=== PATIENT | female | born 1960 | race Two or more races ===

== ENCOUNTER 2020-05-22 07:33 | Outpatient (REF) | payer OTHER, SELFPAY | END 2020-05-22 07:34 | disposition home or self-care (01) | LOC: HO.LAB 07:33 | PROVIDERS: Visit Provider Internal Medicine | DX: Z20.828 Contact with and (suspected) exposure to other viral communicable diseases (principal) | CPT/HCPCS: U0003 ==

== ENCOUNTER 2020-08-17 11:42 | Outpatient (REF) | payer OTHER, SELFPAY ==
--- NOTE | 2020-08-17 11:48 | XR_ITS ---
EXAMINATION: XR KNEE, RIGHT XR KNEE, LEFT CLINICAL INFORMATION: Bilateral knee pain COMPARISON: None. TECHNIQUE: Each knee is imaged in 4 views. There are a total of 8 views. FINDINGS: Right: There is trace suprapatellar effusion with mild thickening of the bursa. Hoffa's fat pad appears normal. There is no joint narrowing or erosive change or chondrocalcinosis. No fracture or dislocation or destructive process. Left: No fracture, dislocation, or suprapatellar effusion. Hoffa's fat pad appears normal. There is no joint narrowing, erosive change, or chondrocalcinosis. Normal bony mineralization. No destructive process. XR/XR knee RT 4V IMPRESSION: 1. Right. Trace suprapatellar effusion. No bony abnormality. 2. Left: Unremarkable.
--- NOTE | 2020-08-17 11:48 | XR_ITS ---
EXAMINATION: XR KNEE, RIGHT XR KNEE, LEFT CLINICAL INFORMATION: Bilateral knee pain COMPARISON: None. TECHNIQUE: Each knee is imaged in 4 views. There are a total of 8 views. FINDINGS: Right: There is trace suprapatellar effusion with mild thickening of the bursa. Hoffa's fat pad appears normal. There is no joint narrowing or erosive change or chondrocalcinosis. No fracture or dislocation or destructive process. Left: No fracture, dislocation, or suprapatellar effusion. Hoffa's fat pad appears normal. There is no joint narrowing, erosive change, or chondrocalcinosis. Normal bony mineralization. No destructive process. XR/XR knee LT 4V IMPRESSION: 1. Right. Trace suprapatellar effusion. No bony abnormality. 2. Left: Unremarkable.
== END 2020-08-17 11:43 | disposition home or self-care (01) ==
LOC: HO.XRAY 11:42
PROVIDERS: Visit Provider Nurse Practitioner Family
DX: M25.562 Pain in left knee (principal); M25.561 Pain in right knee; Z91.81 History of falling
CPT/HCPCS: 73564

== ENCOUNTER 2021-01-05 12:56 | Emergency (ER) | payer OTHER, SELFPAY ==
[2021-01-05 13:12] VITALS: BP 140/93; PULSE 81; RESP 16; O2SAT 98; BMI 29.2
[2021-01-05 15:53] LABS: MANUAL DIFF FLAG NO
[2021-01-05 15:54] LABS: Basophils Absolute Auto 0.1 X10*3/uL (0.0-0.2); Basophils Percent Auto 0.8 % (0-2); Eosinophils Absolute Auto 0.2 X10*3/uL (0.0-0.4); Eosinophils Percent Auto 2.1 % (0-4); Hematocrit 41.1 % (37-47); Imm Gran Abs Auto 0.03 X10*3/uL (0.00-0.03); Imm Gran Pct Auto 0.4 % (0.0-0.4); Lymphocytes Absolute Auto 2.9 X10*3/uL (1.2-4.9); Lymphocytes Percent Auto 34.7 % (20-40); Mean Corpuscular HGB Conc 31.6 g/dl (31.0-35.0); Mean Corpuscular Hemoglobin 27.5 pg (27.0-33.0); Mean Corpuscular Volume 87.1 fL (80-98); Mean Platelet Volume 11.8 fL (9.4-12.3); Monocytes Absolute Auto 0.4 X10*3/uL (0.1-1.2); Monocytes Percent Auto 4.3 % (2-11); Neutrophils Absolute Auto 4.9 X10*3/uL (2.0-8.3); Neutrophils Percent Auto 57.7 % (45-73); Platelet Count 267 X10*3/uL (160-400); Red Blood Count 4.72 X10*6/uL (4.20-5.50); Red Cell Distribution Width 15.1 % (11.0-16.0); White Blood Count 8.5 X10*3/uL (4.8-10.8)
[2021-01-05 16:23] LABS: Alanine Aminotransferase 24 U/L (0-31); Albumin Level 4.5 g/dL (3.5-5.0); Alkaline Phosphatase 120 U/L (39-117); Anion Gap 13 (12-20); Aspartate Amino Transferase 19 U/L (5-31); Bilirubin Total 0.5 mg/dL (0.0-1.0); Blood Urea Nitrogen 11 mg/dL (9-16); Calcium 10.2 mg/dL (8.4-10.2); Carbon Dioxide 28 mmol/L (22-29); Chloride 105 mmol/L (96-108); Creatinine Clr Calc Pharmacy 69.6; Estimated Glomerular Filt Rate > 60; Glucose Random 78 mg/dL (60-115); Potassium 4.5 mmol/L (3.3-5.1); Sodium 141 mmol/L (135-145); Total Protein 8.1 g/dL (6.5-8.0)
== END 2021-01-05 16:09 | disposition left against medical advice (07) ==
PROVIDERS: Emergency Provider Emergency Medicine
DX: M54.9 Dorsalgia, unspecified (principal)
CPT/HCPCS: 36415; 80053; 85025; 99282; 99283

== ENCOUNTER 2021-01-07 06:25 | Emergency (ER) | payer OTHER, SELFPAY ==
--- NOTE | 2021-01-07 | ECG_ITS ---
Test Reason : CHEST PAIN Blood Pressure : / mmHG Vent. Rate : 073 BPM Atrial Rate : 073 BPM P-R Int : 158 ms QRS Dur : 068 ms QT Int : 402 ms P-R-T Axes : 007 -04 025 degrees QTc Int : 442 ms Normal sinus rhythm Minimal voltage criteria for LVH, may be normal variant Borderline ECG No previous ECGs available Referred By: Generic ED Physician Electronically Signed By:JEANCARLOS CANO
--- NOTE | ~2021-01-07 | XR_ITS ---
EXAMINATION: PORTABLE CHEST 1 VIEW CLINICAL INFORMATION: chest pain . COMPARISON: No recent pertinent prior studies are available for comparison. TECHNIQUE: Portable frontal view of the chest was obtained. FINDINGS: The lungs are well expanded. No focal infiltrate, effusion, edema, or pneumothorax. Cardiac and mediastinal silhouettes are within normal limits for technique. No acute bony abnormality seen. Degenerative changes in the shoulders and spine. XR/XR chest 1V IMPRESSION: No evidence of acute disease.
[2021-01-07 06:50] VITALS: BP 144/92; PULSE 70; RESP 18; TEMP 36.6; O2SAT 99; BMI 27.3
--- NOTE | 2021-01-07 06:55 | ED.CHESTPAIN ---
HPI - Chest Pain General Chief Complaint: Chest Pain Stated Complaint: chest pains Time Seen by Provider: 01/07/21 06:40 Source: patient Mode of arrival: ambulatory Limitations: no limitations History of Present Illness MD complaint: chest pain and chest heaviness Pertinent past history: asthma Onset (ago): day(s) (2) Timing of current episode: constant Prior episodes: No Onset: during rest and during exertion Pain location: substernal Pain radiation: back Severity: moderate Quality: tightness, aching and heaviness Relieving factors: nothing Exacerbating factors: nothing Associated symptoms: dyspnea Treatment prior to arrival: none Related Data Previous Rx's Medication Instructions Recorded cyclobenzaprine 10 mg PO TID PRN #14 tab 01/07/21 doxycycline hyclate 100 mg PO BID 7 Days #14 cap 01/07/21 famotidine [Pepcid] 20 mg PO DAILY PRN #30 tab 01/07/21 ondansetron 4 mg PO Q8H PRN #20 tab 01/07/21 Allergies Allergy/AdvReac Type Severity Reaction Status Date / Time No Known Allergies Allergy Verified 01/07/21 09:44 Review of Systems Review of Systems: Constitutional : No Weight loss, No Fever, No Chills ENT/Mouth : No sore throat, No Rhinorrhea Eyes: No Eye Pain, No Swelling Cardiovascular : pos Chest Pain, pos SOB, no Dyspnea on Exertion, No Orthopnea, No Edema, No Palpitations Respiratory : No Cough, No Sputum Gastrointestinal : no Nausea, No Vomiting, No Diarrhea, No abdominal Pain, No Hematochezia, No Melena Genitourinary : No Dysuria, No Urinary Frequency Musculoskeletal : No joint pain, No Myalgias, No Joint Swelling Skin : No Skin Lesions, No rash Neuro : No Weakness, No Numbness, No Dizziness, No Headache Psych : No Anxiety/Panic, No Depression Heme/Lymph: No Bruising, No Lymphadenopathy Endocrine : No Polyuria, No Polydipsia All other systems reviewed and are negative [facility] Past Medical History Medical History (Updated 01/07/21 @ 09:49 by Idalia Mcallister DO) Asthma No known health problems Social History Social History (Updated 01/07/21 @ 07:40 by Idalia Mcallister DO) Patient Tobacco Use Status: Current someday Tobacco user Use of substances other than those prescribed or required for medical reasons: No Advance Directives: No Advance Directives Information Provided: No Patient : No Physical Exam Vital Signs: Vital Signs: Last Vital Signs Temp 97.8 F 01/07/21 06:50 Pulse 76 01/07/21 08:18 Resp 18 01/07/21 06:50 BP 144/92 H 01/07/21 06:50 Pulse Ox 99 01/07/21 06:50 Body Mass Index 27.3 Appearance: Alert. Oriented X3. No acute distress. Eyes: Pupils equal, round and reactive to light. ENT: Pharynx normal. Neck: Normal inspection. Neck supple. CVS: Normal heart rate and rhythm. Pulses normal. Respiratory: No respiratory distress. Breath sounds decreased throughout Abdomen: Soft and nontender. Skin: Skin warm and dry. Normal skin color. Normal skin turgor. Extremities: No lower extremity edema. No calf ttp Neuro: Oriented X 3. No motor deficit. No sensory deficit. Course Course Course Narrative: neg ddimer, EKG, CXR, troponin flat with 2 days of symptoms + trich will treat for G+C as well having unprotected sex with her ex patient aware of plan of care, feels better MDM - Chest Pain MDM Narrative Medical decision making narrative: 60 yo female with a hx of asthma here with chest tightness and pain with dyspnea at this time she is diminished will need labs, troponin x 1, ddimer, CXR, EKG, she is diminished albuterol and prednisone ordered, could be MSK vs atypical ACS vs VTE it has been going on for 2 days - dispo per results and findings. Lab Data Result diagrams: 01/07/21 08:45 01/07/21 08:45 Labs: Lab Results 01/07/21 01/07/21 01/07/21 Range/Units 08:45 08:45 08:46 WBC 6.2 (4.8-10.8) X10*3/uL RBC 4.61 (4.20-5.50) X10*6/uL Hgb 12.5 (12.0-16.0) g/dl Hct 40.0 (37-47) % MCV 86.8 (80-98) fL MCH 27.1 (27.0-33.0) pg MCHC 31.3 (31.0-35.0) g/dl RDW 15.4 (11.0-16.0) % Plt Count 241 (160-400) X10*3/uL MPV 11.8 (9.4-12.3) fL Immature Gran % (Auto) 0.2 (0.0-0.4) % Neut % (Auto) 56.3 (45-73) % Lymph % (Auto) 34.4 (20-40) % Murray % (Auto) 4.9 (2-11) % Eos % (Auto) 3.1 (0-4) % Baso % (Auto) 1.1 (0-2) % Lymph # (Auto) 2.1 (1.2-4.9) X10*3/uL Murray # (Auto) 0.3 (0.1-1.2) X10*3/uL Eos # (Auto) 0.2 (0.0-0.4) X10*3/uL Baso # (Auto) 0.1 (0.0-0.2) X10*3/uL Abs Immat Gran (auto) 0.01 (0.00-0.03) X10*3/uL Absolute Neuts (auto) 3.5 (2.0-8.3) X10*3/uL Absolute Nucleated RBC 0.000 (0.0-0.012) X10*3/uL Nucleated RBC % (auto) 0.0 (0.0-0.2) /100WBC D-Dimer NG/ML Sodium 142 (135-145) mmol/L Potassium 4.2 (3.3-5.1) mmol/L Chloride 105 (96-108) mmol/L Carbon Dioxide 29 (22-29) mmol/L Anion Gap 12 (12-20) BUN 17 H D (9-16) mg/dL Creatinine 0.77 (0.5-1.4) mg/dL Estim Creat Clear Calc 67.4 Estimated GFR > 60 Random Glucose 98 (60-115) mg/dL Calcium 9.4 D (8.4-10.2) mg/dL Magnesium 2.1 (1.6-2.6) mg/dL Total Bilirubin 0.3 (0.0-1.0) mg/dL Direct Bilirubin < 0.2 (0.0-0.5) mg/dL AST 17 (5-31) U/L ALT 22 (0-31) U/L Alkaline Phosphatase 108 (39-117) U/L Troponin I High Sens < 3.5 (<3.5-17.0) ng/L B-Natriuretic Peptide 19 (<100) pg/mL Total Protein 7.2 (6.5-8.0) g/dL Albumin 4.1 (3.5-5.0) g/dL Lipase 24 (8-78) U/L // Range/Units 08:46 WBC (4.8-10.8) X10*3/uL RBC (4.20-5.50) X10*6/uL Hgb (12.0-16.0) g/dl Hct (37-47) % MCV (80-98) fL MCH (27.0-33.0) pg MCHC (31.0-35.0) g/dl RDW (11.0-16.0) % Plt Count (160-400) X10*3/uL MPV (9.4-12.3) fL Immature Gran % (Auto) (0.0-0.4) % Neut % (Auto) (45-73) % Lymph % (Auto) (20-40) % Murray % (Auto) (2-11) % Eos % (Auto) (0-4) % Baso % (Auto) (0-2) % Lymph # (Auto) (1.2-4.9) X10*3/uL Murray # (Auto) (0.1-1.2) X10*3/uL Eos # (Auto) (0.0-0.4) X10*3/uL Baso # (Auto) (0.0-0.2) X10*3/uL Abs Immat Gran (auto) (0.00-0.03) X10*3/uL Absolute Neuts (auto) (2.0-8.3) X10*3/uL Absolute Nucleated RBC (0.0-0.012) X10*3/uL Nucleated RBC % (auto) (0.0-0.2) /100WBC D-Dimer 229 NG/ML Sodium (135-145) mmol/L Potassium (3.3-5.1) mmol/L Chloride (96-108) mmol/L Carbon Dioxide (22-29) mmol/L Anion Gap (12-20) BUN (9-16) mg/dL Creatinine (0.5-1.4) mg/dL Estim Creat Clear Calc Estimated GFR Random Glucose (60-115) mg/dL Calcium (8.4-10.2) mg/dL Magnesium (1.6-2.6) mg/dL Total Bilirubin (0.0-1.0) mg/dL Direct Bilirubin (0.0-0.5) mg/dL AST (5-31) U/L ALT (0-31) U/L Alkaline Phosphatase (39-117) U/L Troponin I High Sens (<3.5-17.0) ng/L B-Natriuretic Peptide (<100) pg/mL Total Protein (6.5-8.0) g/dL Albumin (3.5-5.0) g/dL Lipase (8-78) U/L ECG Data ECG #1: Attestation: I personally reviewed and interpreted this ECG as follows: ECG interpretation date: 01/07/21 ECG interpretation time: 06:56 Interpretation: Rate: 73 Rhythm: NSR Maidens: left, LVH Normal P waves. Normal DANITA. Normal QRS complex. ST T wave : normal no KEMAL qTC: normal prior studies: no acute ischemia The study has been interpreted contemporaneously by me. . Discharge Plan Discharge Clinical Impression: Atypical chest pain, Trichomonas infection GERD (gastroesophageal reflux disease) Qualifiers: Esophagitis presence: with esophagitis Esophagitis bleeding: without hemorrhage Qualified Code(s): K21.00 - Gastro-esophageal reflux disease with esophagitis, without bleeding Patient Disposition: Home, Self-Care Instructions: Chest Pain (ED), Trichomoniasis (ED), Gastroesophageal Reflux Disease (ED) Additional Instructions: return to ED for any worsening symptoms or concerns Prescriptions: New cyclobenzaprine 10 mg tablet 10 mg PO TID PRN (Reason: muscle spasm) Qty: 14 RF: 0 doxycycline hyclate 100 mg capsule 100 mg PO BID 7 Days Qty: 14 RF: 0 famotidine [Pepcid] 20 mg tablet 20 mg PO DAILY PRN (Reason: abdominal discomfort) Qty: 30 RF: 0 ondansetron 4 mg tablet,disintegrating 4 mg PO Q8H PRN (Reason: nausea and vomiting) Qty: 20 RF: 0
[2021-01-07] MEDS: Cyclobenzaprine HCl 10 MG TABLET PO (07:48)
[2021-01-07] MEDS: predniSONE 20 MG TABLET 60 MG PO (07:48)
[2021-01-07] MEDS: Aspirin 81 MG TAB.CHEW 162 MG PO (07:49)
[2021-01-07] MEDS: Albuterol Sulfate (0.083%) 2.5 MG/3 ML VIAL.NEB INHALE (08:15)
[2021-01-07 08:18] VITALS: PULSE 76; O2SAT 96
[2021-01-07 08:56] LABS: MANUAL DIFF FLAG NO
[2021-01-07 08:57] LABS: Basophils Absolute Auto 0.1 X10*3/uL (0.0-0.2); Basophils Percent Auto 1.1 % (0-2); Eosinophils Absolute Auto 0.2 X10*3/uL (0.0-0.4); Eosinophils Percent Auto 3.1 % (0-4); Hemoglobin 12.5 g/dl (12.0-16.0); Imm Gran Abs Auto 0.01 X10*3/uL (0.00-0.03); Imm Gran Pct Auto 0.2 % (0.0-0.4); Lymphocytes Absolute Auto 2.1 X10*3/uL (1.2-4.9); Lymphocytes Percent Auto 34.4 % (20-40); Mean Corpuscular HGB Conc 31.3 g/dl (31.0-35.0); Mean Corpuscular Hemoglobin 27.1 pg (27.0-33.0); Mean Corpuscular Volume 86.8 fL (80-98); Mean Platelet Volume 11.8 fL (9.4-12.3); Monocytes Absolute Auto 0.3 X10*3/uL (0.1-1.2); Monocytes Percent Auto 4.9 % (2-11); Neutrophils Absolute Auto 3.5 X10*3/uL (2.0-8.3); Neutrophils Percent Auto 56.3 % (45-73); Platelet Count 241 X10*3/uL (160-400); Red Blood Count 4.61 X10*6/uL (4.20-5.50); Red Cell Distribution Width 15.4 % (11.0-16.0); White Blood Count 6.2 X10*3/uL (4.8-10.8)
[2021-01-07 09:06] LABS: D Dimer 229 NG/ML
[2021-01-07 09:30] LABS: Alanine Aminotransferase 22 U/L (0-31); Albumin Level 4.1 g/dL (3.5-5.0); Alkaline Phosphatase 108 U/L (39-117); Anion Gap 12 (12-20); Aspartate Amino Transferase 17 U/L (5-31); Bilirubin Direct < 0.2 mg/dL (0.0-0.5); Bilirubin Total 0.3 mg/dL (0.0-1.0); Blood Urea Nitrogen 17 mg/dL (9-16); Calcium 9.4 mg/dL (8.4-10.2); Carbon Dioxide 29 mmol/L (22-29); Chloride 105 mmol/L (96-108); Creatinine Clr Calc Pharmacy 67.4; Estimated Glomerular Filt Rate > 60; Glucose Random 98 mg/dL (60-115); Lipase 24 U/L (8-78); Magnesium 2.1 mg/dL (1.6-2.6); Potassium 4.2 mmol/L (3.3-5.1); Sodium 142 mmol/L (135-145); Total Protein 7.2 g/dL (6.5-8.0)
[2021-01-07] MEDS: Lidocaine HCl Viscous 2 % 15 ML SOLUTION MUCOUS MEM (09:30)
[2021-01-07] MEDS: Magnesium Hydrox/Alum Hydrox 30 ML ORAL.SUSP PO (09:30)
[2021-01-07 09:37] LABS: B Type Natriuretic Peptide 19 pg/mL (<100); Troponin-I High Sensitivity < 3.5 ng/L (<3.5-17.0)
[2021-01-07] MEDS: metroNIDAZOLE 500 MG TABLET 2000 MG PO (10:04)
[2021-01-07] MEDS: cefTRIAXone sodium 500 MG, Lidocaine HCl 1 % MPF 1 ML IM (10:05)
[2021-01-07 11:22] LABS: BV Int Neg Control Negative (Negative); BV Int Pos Control Positive (Positive)
[2021-01-07 12:02] LABS: CT PCR NOT DETECTED (Not Detect.); NG PCR NOT DETECTED (Not Detect.)
== END 2021-01-07 10:14 | disposition home or self-care (01) ==
PROVIDERS: Emergency Provider Emergency Medicine
DX: R07.89 Other chest pain (principal); A59.9 Trichomoniasis, unspecified; K21.00 Gastro-esophageal reflux disease with esophagitis, without bleeding; J45.909 Unspecified asthma, uncomplicated
CPT/HCPCS: 36415; 71045; 80048; 80076; 83690; 83735; 83880; 84484; 85025; 85379; 87480; 87491; 87510; 87591; 87660; 93005; 94640; 96372; 99284; 99285; J0696

== ENCOUNTER 2021-04-04 07:54 | Emergency (ER) | payer OTHER, SELFPAY ==
--- NOTE | ~2021-04-04 | XR_ITS ---
EXAMINATION: LUMBAR SPINE AND RIGHT HIP. CLINICAL INFORMATION: Low back pain radiating down the right leg. COMPARISON: None TECHNIQUE: Lumbar spine 4 views. AP pelvis and right hip 3 views. FINDINGS: Lumbar spine: There is normal lumbar lordosis. The vertebral heights, alignment and disc heights are normal. No visible acute fracture, dislocation or subluxation seen. Mild loss of L5-S1, L4-L5 and L3-L4 disc heights is seen. Mild right lateral spondylosis at the L4-L5 and L5-S1 disc levels is noted. No visible fracture, dislocation or lytic process seen. The paravertebral soft tissues are normal. AP pelvis: There is normal is symmetrical hip joint and SI joint spaces without any bony erosive changes, fracture or dislocation. No lytic process seen. The soft tissues are normal. There are enthesophytes along the right anterior superior iliac spine. The soft tissues are normal. Right hip: There is no acute fracture or dislocation. There is mild medial right hip joint periarticular spurring. There are small enthesophytes along the right greater trochanter as well. No visible acute fracture, dislocation or subluxation seen. XR/XR lumbar spine 2-3V IMPRESSION: Mild degenerative disc changes lumbar spine from L3-L4 L5-S1 disc levels. There is moderate right enthesophytes along the L4-L5 and L5/S1 disc level. This may be impinging on the neural foramina. No visible acute fracture or dislocation seen. Degenerative right hip changes with periarticular spurring. No acute fracture, dislocation or lytic process seen.
--- NOTE | ~2021-04-04 | XR_ITS ---
EXAMINATION: LUMBAR SPINE AND RIGHT HIP. CLINICAL INFORMATION: Low back pain radiating down the right leg. COMPARISON: None TECHNIQUE: Lumbar spine 4 views. AP pelvis and right hip 3 views. FINDINGS: Lumbar spine: There is normal lumbar lordosis. The vertebral heights, alignment and disc heights are normal. No visible acute fracture, dislocation or subluxation seen. Mild loss of L5-S1, L4-L5 and L3-L4 disc heights is seen. Mild right lateral spondylosis at the L4-L5 and L5-S1 disc levels is noted. No visible fracture, dislocation or lytic process seen. The paravertebral soft tissues are normal. AP pelvis: There is normal is symmetrical hip joint and SI joint spaces without any bony erosive changes, fracture or dislocation. No lytic process seen. The soft tissues are normal. There are enthesophytes along the right anterior superior iliac spine. The soft tissues are normal. Right hip: There is no acute fracture or dislocation. There is mild medial right hip joint periarticular spurring. There are small enthesophytes along the right greater trochanter as well. No visible acute fracture, dislocation or subluxation seen. XR/XR hip RT min 2V IMPRESSION: Mild degenerative disc changes lumbar spine from L3-L4 L5-S1 disc levels. There is moderate right enthesophytes along the L4-L5 and L5/S1 disc level. This may be impinging on the neural foramina. No visible acute fracture or dislocation seen. Degenerative right hip changes with periarticular spurring. No acute fracture, dislocation or lytic process seen.
--- NOTE | ~2021-04-04 | US_ITS ---
EXAMINATION: US VENOUS ULTRASOUND WITH DOPPLER LOWER EXTREMITY, RIGHT CLINICAL INFORMATION: Right palpable finding COMPARISON: None TECHNIQUE: Ultrasound of the deep veins is performed from the hip to the calf with compression sonography and color and pulse Doppler assessment. Spectral analysis with color-flow imaging is performed. FINDINGS: There is normal venous compression and respiratory variation and augmented flow. The visualized common femoral vein, superficial femoral vein, profunda femoral vein, popliteal vein, and the trifurcation region shows no evidence of deep venous thrombosis. There is no significant popliteal fossa cyst. There are 2 superficial hyperechoic areas in the subcutaneous fat of the lateral upper thigh questionable for focal lipomas. These measure 1.8 x 0.7 x 1.4 cm and 1.5 x 0.7 x 1.5 cm. There is shotty right inguinal lymphadenopathy. US/US venous duplex LE RT IMPRESSION: No DVT demonstrated in the right lower extremity.
[2021-04-04 08:12] VITALS: BP 135/66; PULSE 65
[2021-04-04 08:25] VITALS: BP 161/93; PULSE 66; RESP 16; O2SAT 98; BMI 27.3
--- NOTE | 2021-04-04 08:52 | ED.BACK ---
HPI - Back Pain/Injury General Chief Complaint: Back Pain/Injury Stated Complaint: R UPPER LEG TO BACK PAIN X'S 1 WEEK Time Seen by Provider: 04/04/21 08:33 Source: patient Mode of arrival: ambulatory Limitations: no limitations History of Present Illness HPI Narrative: Patient presents to ED for multiple complaints. Patient states right leg pain/numbness with pain being referred to right lower back/hip area for 1 weeks. Patient was concerned because shows palpable mass on lateral side of thigh and history of Varicose veins with concerning for DVT. Patient denies any facial droop, slurred speech, paralysis of extremities, trouble walking, or urinary/bowel incontinence. Related Data Previous Rx's Medication Instructions Recorded cyclobenzaprine 10 mg tablet 10 mg PO TID PRN #14 tab 01/07/21 doxycycline hyclate 100 mg capsule 100 mg PO BID 7 Days #14 cap 01/07/21 famotidine 20 mg tablet (Pepcid) 20 mg PO DAILY PRN #30 tab 01/07/21 ondansetron 4 mg disintegrating 4 mg PO Q8H PRN #20 tab 01/07/21 tablet ketorolac 10 mg tablet 10 mg PO Q6H PRN 5 Days #20 tab 04/04/21 prednisone 20 mg tablet 40 mg PO DAILY 5 Days #10 tab 04/04/21 Allergies Allergy/AdvReac Type Severity Reaction Status Date / Time No Known Allergies Allergy Verified 01/07/21 09:44 Review of Systems Review of Systems: Yes all other systems are reviewed and are negative Constitutional: Constitutional: Reports as per HPI and Reports no additional constitutional complaints Eyes: Eyes: Reports as per HPI and Reports no additional eye complaints ENT: Reports system reviewed and no additional complaints, except as documented and Reports as per HPI Cardiovascular: Cardiovascular: Reports as per HPI and Reports no additional cardiovascular complaints Respiratory: Respiratory: Reports as per HPI and Reports no additional respiratory complaints Gastrointestinal: Gastrointestinal: Reports as per HPI and Reports no additional gastrointestinal complaints Musculoskeletal: Musculoskeletal: Reports no additional musculoskeletal complaints, Reports as per HPI and Reports back pain (lower back) Comments: right thigh pain radiating down leg/numbness Neurologic: Reports system reviewed and no additional complaints, except as documented and Reports as per HPI Psychiatric: Psychiatric: Reports no additional psychiatric complaints and Reports as per HPI [facility] Past Medical History Medical History (Updated 04/04/21 @ 11:36 by ROSALIA Aviles) Asthma No known health problems Social History Social History (Updated 01/07/21 @ 07:40 by Idalia Mcallister DO) Patient Tobacco Use Status: Current someday Tobacco user Advance Directives: No Advance Directives Information Provided: No Physical Exam Vital Signs: Vital Signs: Last Vital Signs Pulse 66 04/04/21 08:25 Resp 16 04/04/21 08:25 BP 161/93 H 04/04/21 08:25 Pulse Ox 98 04/04/21 08:25 Body Mass Index 27.3 Const: General: cooperative, healthy appearing, comfortable, no acute distress, well developed, alert, awake and Physically active Orientation/consciousness: patient oriented x3 HENMT: Head: Yes normal to inspection, Yes No palpable skull fracture present, Yes normocephalic, Yes atraumatic and No abrasion Eyes: General: appearance normal, both eyes and all related structures Neck: Neck: Yes normal visual inspection, Yes full ROM, Yes no lymphadenopathy, Yes no meningeal signs, Yes trachea midline, Yes supple and No tender Chest: Chest palpation & inspection: normal inspection of the chest and normal palpation of entire chest wall Resp: Effort & Inspection: normal respiratory effort and able to speak in complete sentences Auscultation: clear to auscultation bilaterally Cardio: Jugular venous distension: no JVD Heart sounds: S1 normal heart sound present and S2 normal heart sound present GI: Inspection: Yes normal to inspection and No abdominal wall ecchymosis Palpation (GI): Soft to palpation, not firm, nontender and no guarding : General: No CVA tenderness and Yes no CVA tenderness Back/Spine/Pelvis: Back: no CVA tenderness, No CVA tenderness and back tenderness (Positive for right lumbar tenderness on palpation) Skin: General skin exam: no rashes or lesions noted and elasticity normal Neuro: General: patient oriented x3, gait normal and no meningeal signs Cranial nerves: Yes CN's II-XII intact bilaterally Extrem: General: Yes normal to inspection and Yes full ROM Upper/lower leg/hip images: 1. Tender non erythematous mass on palpation. Popliteal/femoral/pedal pulses intact. Motor/neuro/vascular exam intact Psych: Appearance: grossly normal, well kempt and not disheveled Course Course Course Narrative: History and physical exam indicates more referred lumbar radiculopathy, due to possible mass on right thigh with history of varicose veins with ultrasound. Rule out DVT. Reevaluation(s) Reevaluation #1: X-ray of spine and hip shows degenerative arthritis. UA negative for UTI. Ultrasound shows lipomas. Time: 11:32 MDM - Back Pain/Injury MDM Narrative Medical decision making narrative: Degenerative arthritis. Lumbar radicular Passy. Lipoma Lab Data Labs: Lab Results 04/04/21 Range/Units 09:48 Urine Color YELLOW Urine Appearance CLEAR Urine pH 6.0 (5.0-8.0) Ur Specific [place] 1.015 (1.005-1.025) Urine Protein NEG (NEG-TRACE) MG/DL Urine Glucose (UA) NEG (NEG) MG/DL Urine Ketones NEG (NEG) MG/DL Urine Blood NEG (NEG) Urine Nitrite NEG (NEG) Ur Leukocyte Esterase NEG (NEG) Discharge Plan Discharge Clinical Impression: Lumbar radiculopathy, Degenerative disc disease at L5-S1 level, Arthritis of hip Patient Disposition: Home, Self-Care Instructions: Lumbar Radiculopathy (ED), Degenerative Disc Disease (ED), Arthritis (ED), Lipoma (ED) Additional Instructions: X-ray shows severe arthritis of lumbar spine and right hip. Ultrasound came back negative for DVT, but shows lipoma. Please follow-up with the PCP for MRI if pain worsens. Return to the ED for any urinary/bowel incontinence, inability to walk, prox of lower extremities, worsening back pain, fever, chills, or any other concerning symptoms. Prescriptions: New ketorolac 10 mg tablet 10 mg PO Q6H PRN (Reason: pain) 5 Days Qty: 20 RF: 0 prednisone 20 mg tablet 40 mg PO DAILY 5 Days Qty: 10 RF: 0 No Action cyclobenzaprine 10 mg tablet 10 mg PO TID PRN (Reason: muscle spasm) Qty: 14 RF: 0 doxycycline hyclate 100 mg capsule 100 mg PO BID 7 Days Qty: 14 RF: 0 famotidine [Pepcid] 20 mg tablet 20 mg PO DAILY PRN (Reason: abdominal discomfort) Qty: 30 RF: 0 ondansetron 4 mg tablet,disintegrating 4 mg PO Q8H PRN (Reason: nausea and vomiting) Qty: 20 RF: 0 Stand Alone Forms: Work/School Release Interventions: ED Discharge Assessment Last Done: 04/04/21 11:48 Discharge Date/Time: 04/04/21 11:50 Print Language: Kyrgyz
[2021-04-04] MEDS: Ketorolac Tromethamine 15 MG/ML VIAL 30 MG IM (09:31)
[2021-04-04 09:54] LABS: Appearance Urine CLEAR; Color Urine YELLOW; Glucose Urine UA NEG (NEG); Leukocyte Esterase Urine NEG (NEG); Nitrite Urine NEG (NEG); Specific Gravity - Urine 1.015 (1.005-1.025); Urine Blood NEG (NEG); Urine Ketones NEG (NEG); Urine Protein NEG (NEG-TRACE)
== END 2021-04-04 11:50 | disposition home or self-care (01) ==
PROVIDERS: Physician Assistant; Emergency Provider Emergency Medicine
DX: M54.16 Radiculopathy, lumbar region (principal); M51.37 Other intervertebral disc degeneration, lumbosacral region; M16.11 Unilateral primary osteoarthritis, right hip; Z79.899 Other long term (current) drug therapy
CPT/HCPCS: 72100; 73502; 81003; 93971; 96372; 99283; 99284; J1885

== ENCOUNTER 2021-12-14 07:01 | Inpatient (IN) | payer OTHER, SELFPAY ==
[2021-12-14] VITALS (10 sets, daily range): BP systolic 104–144; BP diastolic 46–83; PULSE 7–108; RESP 18–30; TEMP 36.1–38.3; O2SAT 89–96; BMI 24.9
--- NOTE | ~2021-12-14 | XR_ITS ---
EXAMINATION: XR CHEST CLINICAL INFORMATION: Shortness of breath. COMPARISON: 01/07/2021 chest radiograph. TECHNIQUE: Frontal view of the chest was obtained. FINDINGS: Mild bibasilar linear markings are seen. The lungs are clear. The heart and mediastinal structures are unremarkable. XR/XR chest 1V IMPRESSION: Mild bibasilar linear atelectasis. No acute cardiopulmonary process.
--- NOTE | 2021-12-14 07:18 | ECG_ITS ---
Test Reason : asthma Blood Pressure : / mmHG Vent. Rate : 106 BPM Atrial Rate : 106 BPM P-R Int : 146 ms QRS Dur : 078 ms QT Int : 308 ms P-R-T Axes : 044 007 050 degrees QTc Int : 409 ms Sinus tachycardia Nonspecific T wave abnormality Abnormal ECG When compared with ECG of 07-JAN-2021 06:34, No significant changes seen Referred By: Idalia Mcallister Electronically Signed By:Rashi Jennings
--- NOTE | 2021-12-14 07:29 | ED_ITS ---
HPI - SOB/Dyspnea General Chief Complaint: Dyspnea Stated Complaint: FEVER,GEN WEAKNESS,90% RA,97% ON NEB PER EMS Time Seen by Provider: 12/14/21 07:22 Source: patient Mode of arrival: EMS Limitations: no limitations History of Present Illness HPI Narrative: daughter with influenza, grandchild as well, patient became ill last night overall not feeling well and also developed shortness of breath last night EMS found her 90-91% on RA given duoneb with improvement, patient cannot remember the last time she had to go to the hospital for her asthma. patient did not receive her flu vaccine MD elicited complaint: shortness of breath and asthma attack Pertinent past history: asthma Onset (ago): day(s) (last night) Context: recent illness (family with flu) Timing: progressively worsening Severity: moderate Exacerbating factors: exertion and coughing Relieving factors: rest and bronchodilators Known history of: asthma Associated symptoms: fever, cough, wheezing, sputum production, palpitations, lightheadedness and other (runny nose, fevers, chills, body aches) Treatment prior to arrival: oxygen and bronchodilator Related Data Home Medications Medication Instructions Recorded Confirmed acetaminophen 325 mg tablet 650 mg PO Q6H PRN 12/14/21 12/14/21 albuterol sulfate 90 mcg/actuation 2 puff INHALATION Q4H PRN 12/14/21 12/14/21 aerosol inhaler Allergies Allergy/AdvReac Type Severity Reaction Status Date / Time No Known Allergies Allergy Verified 01/07/21 09:44 Review of Systems Review of Systems: Constitutional : pos Fever, pos Chills ENT/Mouth : No Hoarseness, No sore throat, No Rhinorrhea Eyes: No Redness, No Discharge, No Vision Changes Cardiovascular : pos Chest Pain, positive SOB, positive Dyspnea on Exertion, No Edema Respiratory : positive Cough, No Sputum, positive Wheezing, Gastrointestinal : pos Nausea, No Vomiting, No Diarrhea, No abdominal Pain Genitourinary : No Dysuria, No Hematuria Musculoskeletal : No joint pain, pos Myalgias Skin : No rash Neuro : pos Weakness, No Numbness, No Headache Psych : No anxiety, depression Heme/Lymph: No Bruising, No Bleeding Endocrine : No Polyuria, No Polydipsia All other systems reviewed and are negative [facility] Past Medical History Attestation statement: The following information was validated with the patient. Medical History (Updated 12/14/21 @ 11:20 by David Padilla MD) Asthma Surgical History (Updated 12/14/21 @ 11:20 by David Padilla MD) History of appendectomy Social History Social History (Updated 01/07/21 @ 07:40 by Idalia Mcallister DO) Alcohol intake: never Patient Tobacco Use Status: Current someday Tobacco user Use of substances other than those prescribed or required for medical reasons: No Advance Directives: No Advance Directives Information Provided: No Physical Exam Vital Signs: Vital Signs: Last Vital Signs Temp 98.3 F 12/14/21 13:32 Pulse 7 L 12/14/21 13:32 Resp 18 12/14/21 13:32 BP 109/46 L 12/14/21 13:32 Pulse Ox 93 12/14/21 13:32 Oxygen Flow Rate 2 12/14/21 07:11 BMI result Body Mass Index 24.9 Appearance: Alert. Oriented X3. Mild acute distress. Eyes: Pupils equal, round and reactive to light. ENT: Pharynx normal. no swelling Neck: Normal inspection. Neck supple. CVS: tachycardic heart rate and rhythm. Pulses normal. Respiratory: Mild respiratory distress - tachypnea and retractions. Breath sounds coarse and diminished with wheezes noted Abdomen: Soft and nontender. Skin: Skin warm and dry. Normal skin color. Normal skin turgor. Extremities: No lower extremity edema. No calf ttp Neuro: Oriented X 3. No motor deficit. No sensory deficit. Course Course Course Narrative: still tight, 89% on 2L NC, will repeat neb, likely admit MDM - SOB/Dyspnea MDM Narrative Medical decision making narrative: 61 yo female with asthma that is relatively well controlled, some day smoker, prior mild smoker here with c/o flu exposure and now flu like symptoms as well as asthma excacerbation and diff breathing with hypoxia at this time will need labs, tylenol, neb, IV steroids, CXR. Her tachycardia, fevers and presentation are due to a viral illness and not bacterial infection or severe sepsis. Given exposure to flu and asthma requiring interventions I am starting her on tamiflu. Lab Data Result diagrams: 12/14/21 07:43 12/14/21 07:43 Labs: Lab Results 12/14/21 12/14/21 12/14/21 Range/Units 07:43 07:43 07:43 WBC 11.2 H (4.8-10.8) X10*3/uL RBC 4.23 (4.20-5.50) X10*6/uL Hgb 11.3 L (12.0-16.0) g/dl Hct 35.9 L (37.0-47.0) % MCV 84.9 (80.0-98.0) fL MCH 26.7 L (27.0-33.0) pg MCHC 31.5 (31.0-35.0) g/dl RDW 15.0 (11.0-16.0) % Plt Count 299 (160-400) X10*3/uL MPV 11.1 (9.4-12.3) fL Immature Gran % (Auto) 0.4 (0.0-0.4) % Neut % (Auto) 93.0 H (45-73) % Lymph % (Auto) 3.3 L (20-40) % [place] % (Auto) 2.9 (2-11) % Eos % (Auto) 0.2 (0-4) % Baso % (Auto) 0.2 (0-2) % Lymph # (Auto) 0.4 L (1.2-4.9) X10*3/uL [place] # (Auto) 0.3 (0.1-1.2) X10*3/uL Eos # (Auto) 0.0 (0.0-0.4) X10*3/uL Baso # (Auto) 0.0 (0.0-0.2) X10*3/uL Abs Immat Gran (auto) 0.05 H (0.00-0.03) X10*3/uL Absolute Neuts (auto) 10.4 H (2.0-8.3) x10*3/uL Absolute Nucleated RBC 0.000 (0.0-0.012) X10*3/uL Nucleated RBC % (auto) 0.0 (0.0-0.2) /100WBC Smear Tech's Comments VERIFIED Sodium 136 (135-145) mmol/L Potassium 3.9 (3.3-5.1) mmol/L Chloride 103 (96-108) mmol/L Carbon Dioxide 24 (22-29) mmol/L Anion Gap 13 (12-20) BUN 8 L (9-16) mg/dL Creatinine 0.83 (0.5-1.4) mg/dL Estim Creat Clear Calc 66.4 Estimated GFR > 60 Random Glucose 122 H (60-115) mg/dL Calcium 8.9 (8.4-10.2) mg/dL Total Bilirubin 0.3 (0.0-1.0) mg/dL Direct Bilirubin < 0.2 (0.0-0.5) mg/dL AST 30 D (5-31) U/L ALT 40 H (0-31) U/L Alkaline Phosphatase 112 (39-117) U/L Troponin I High Sens < 3.5 (<3.5-17.0) ng/L B-Natriuretic Peptide 63 (<100) pg/mL Total Protein 7.1 (6.5-8.0) g/dL Albumin 3.8 (3.5-5.0) g/dL Urine Color Urine Appearance Urine pH (5.0-8.0) Ur Specific [place] (1.005-1.025) Urine Protein (NEG-TRACE) MG/DL Urine Glucose (UA) (NEG) MG/DL Urine Ketones (NEG) MG/DL Urine Blood (NEG) Urine Nitrite (NEG) Ur Leukocyte Esterase (NEG) COVID-19 (SYED) (Negative) COVID-19 Clin Com Influenza Type A (DESMOND) (Negative) Influenza Type B (DESMOND) (Negative) Influenza A & B Note 12/14/21 12/14/21 12/14/21 Range/Units 07:43 07:43 09:13 WBC (4.8-10.8) X10*3/uL RBC (4.20-5.50) X10*6/uL Hgb (12.0-16.0) g/dl Hct (37.0-47.0) % MCV (80.0-98.0) fL MCH (27.0-33.0) pg MCHC (31.0-35.0) g/dl RDW (11.0-16.0) % Plt Count (160-400) X10*3/uL MPV (9.4-12.3) fL Immature Gran % (Auto) (0.0-0.4) % Neut % (Auto) (45-73) % Lymph % (Auto) (20-40) % [place] % (Auto) (2-11) % Eos % (Auto) (0-4) % Baso % (Auto) (0-2) % Lymph # (Auto) (1.2-4.9) X10*3/uL [place] # (Auto) (0.1-1.2) X10*3/uL Eos # (Auto) (0.0-0.4) X10*3/uL Baso # (Auto) (0.0-0.2) X10*3/uL Abs Immat Gran (auto) (0.00-0.03) X10*3/uL Absolute Neuts (auto) (2.0-8.3) x10*3/uL Absolute Nucleated RBC (0.0-0.012) X10*3/uL Nucleated RBC % (auto) (0.0-0.2) /100WBC Smear Tech's Comments Sodium (135-145) mmol/L Potassium (3.3-5.1) mmol/L Chloride (96-108) mmol/L Carbon Dioxide (22-29) mmol/L Anion Gap (12-20) BUN (9-16) mg/dL Creatinine (0.5-1.4) mg/dL Estim Creat Clear Calc Estimated GFR Random Glucose (60-115) mg/dL Calcium (8.4-10.2) mg/dL Total Bilirubin (0.0-1.0) mg/dL Direct Bilirubin (0.0-0.5) mg/dL AST (5-31) U/L ALT (0-31) U/L Alkaline Phosphatase (39-117) U/L Troponin I High Sens (<3.5-17.0) ng/L B-Natriuretic Peptide (<100) pg/mL Total Protein (6.5-8.0) g/dL Albumin (3.5-5.0) g/dL Urine Color YELLOW Urine Appearance CLEAR Urine pH 6.0 (5.0-8.0) Ur Specific [place] 1.020 (1.005-1.025) Urine Protein TRACE (NEG-TRACE) MG/DL Urine Glucose (UA) NEG (NEG) MG/DL Urine Ketones NEG (NEG) MG/DL Urine Blood NEG (NEG) Urine Nitrite NEG (NEG) Ur Leukocyte Esterase NEG (NEG) COVID-19 (SYED) Negative (Negative) COVID-19 Clin Com See Note Influenza Type A (DESMOND) Positive A (Negative) Influenza Type B (DESMOND) Negative (Negative) Influenza A & B Note See Note ECG Data Attestation: I personally reviewed and interpreted this ECG as follows: ECG interpretation date: 12/14/21 ECG interpretation time: 07:31 Interpretation: Rate: 106 Rhythm: sinus tachycardia [place]: normal Normal P waves. Normal DANITA. Normal QRS complex. ST T wave : nonspecific no KEMAL qTC: normal prior studies: no acute ischemia The study has been interpreted contemporaneously by me. . Critical Care Time Critical Care Time Critical Care Time: Yes Total Critical Care Time: 45 Attestation: neb treatments, supplemental O2, IVF, medical admission I attest to this time spent taking care of the patient Discharge Plan Discharge Clinical Impression: Influenza A, Hypoxia Asthma with exacerbation Qualifiers: Asthma severity: moderate Asthma persistence: persistent Qualified Code(s): J45.41 - Moderate persistent asthma with (acute) exacerbation Patient Disposition: Admitted As Inpatient
[2021-12-14] MEDS: Albuterol Sulfate (0.083%) 2.5 MG/3 ML VIAL.NEB INHALE (07:34)
[2021-12-14] MEDS: methylPREDNISolone Sod Succ 125 MG/2 ML VIAL IVPUSH (07:47)
[2021-12-14] MEDS: Acetaminophen 325 MG TABLET 650 MG PO ×3 (07:47→20:08)
[2021-12-14] MEDS: Oseltamivir Phosphate 75 MG CAPSULE PO ×2 (07:48→22:00)
[2021-12-14] MEDS: 0.9 % Sodium Chloride 500 ML IV (07:49)
[2021-12-14 07:52] LABS: Basophils Percent Auto 0.2 % (0-2); Eosinophils Percent Auto 0.2 % (0-4); Hematocrit 35.9 % (37.0-47.0); Hemoglobin 11.3 g/dl (12.0-16.0); Imm Gran Abs Auto 0.05 X10*3/uL (0.00-0.03); Imm Gran Pct Auto 0.4 % (0.0-0.4); Lymphocytes Absolute Auto 0.4 X10*3/uL (1.2-4.9); Lymphocytes Percent Auto 3.3 % (20-40); MANUAL DIFF FLAG SCAN; Mean Corpuscular HGB Conc 31.5 g/dl (31.0-35.0); Mean Corpuscular Hemoglobin 26.7 pg (27.0-33.0); Mean Corpuscular Volume 84.9 fL (80.0-98.0); Mean Platelet Volume 11.1 fL (9.4-12.3); Monocytes Absolute Auto 0.3 X10*3/uL (0.1-1.2); Monocytes Percent Auto 2.9 % (2-11); Neutrophils Absolute Auto 10.4 x10*3/uL (2.0-8.3); Platelet Count 299 X10*3/uL (160-400); Red Blood Count 4.23 X10*6/uL (4.20-5.50); SCAN SMEAR FLAG 1; White Blood Count 11.2 X10*3/uL (4.8-10.8)
[2021-12-14 08:06] LABS: Anion Gap 13 (12-20); Blood Urea Nitrogen 8 mg/dL (9-16); COVID-19 Test Negative (Negative); Calcium 8.9 mg/dL (8.4-10.2); Carbon Dioxide 24 mmol/L (22-29); Chloride 103 mmol/L (96-108); Creatinine Clr Calc Pharmacy 66.4; Estimated Glomerular Filt Rate > 60; Glucose Random 122 mg/dL (60-115); Potassium 3.9 mmol/L (3.3-5.1); Sodium 136 mmol/L (135-145)
[2021-12-14 08:07] LABS: IDNOW Serial# 9DB6401D; Influenza A Positive (Negative); Influenza B2 Negative (Negative)
[2021-12-14 08:13] LABS: B Type Natriuretic Peptide 63 pg/mL (<100); Troponin-I High Sensitivity < 3.5 ng/L (<3.5-17.0)
[2021-12-14 08:16] LABS: SLIDE REVIEW VERIFIED
[2021-12-14 09:19] LABS: Appearance Urine CLEAR; Color Urine YELLOW; Glucose Urine UA NEG (NEG); Leukocyte Esterase Urine NEG (NEG); Nitrite Urine NEG (NEG); Urine Blood NEG (NEG); Urine Ketones NEG (NEG); Urine Protein TRACE MG/DL (NEG-TRACE)
[2021-12-14] MEDS: Magnesium Sulfate/H2O 2 GM/50 ML PIGGYBACK IV (09:26)
[2021-12-14 09:28] LABS: Alanine Aminotransferase 40 U/L (0-31); Albumin Level 3.8 g/dL (3.5-5.0); Alkaline Phosphatase 112 U/L (39-117); Aspartate Amino Transferase 30 U/L (5-31); Bilirubin Direct < 0.2 mg/dL (0.0-0.5); Bilirubin Total 0.3 mg/dL (0.0-1.0); Total Protein 7.1 g/dL (6.5-8.0)
[2021-12-14] MEDS: Albuterol/Iprat 2.5/0.5MG 3 ML AMPUL.NEB INHALE ×2 (09:29→10:58)
--- NOTE | 2021-12-14 10:19 | PM.IMHP ---
History of Present Illness Date of Service: 12/14/21 Chief Complaint: fever, cough, shortness of breath This is a 61 yo F with a PMH of asthma (appears to be mild and intermittent per her history) who presents to the ED with complaints of shorntess of breath, cough, fever, fatigue, muscle aches and pains which began on the evening prior to arrival. The patient reports that multiple family members have tested positive for influenza at home and her symptoms started the evening [employer]. She reports this AM, she was so short of breath that she could barely talk. She reports decreased oral intake. She reports fevers (subjective at home). She states that she cannot remember the last time her asthma flared up. She reports active smoking, with last cigarette 2-3 days prior to admission. She is unvaccinated for influenza and COVID. Upon arrival to the ED, she was found to be febrile. She was tachypneic in the high 30s and hypoxic down to 89%. She was treated with multiple updrafts, IV mag and IV solu-medrol. She has improved, but continues to require oxygen and is tachypneic with minimal exertion (even talking). She will be admitted for further treatment. Review of Systems Review of Systems: negative except HPI [facility] Medical History (Updated 12/14/21 @ 11:20 by David Padilla MD) Asthma Pertinent family history: Denies any medical issues in her family Surgical History (Updated 12/14/21 @ 11:20 by David Padilla MD) History of appendectomy Social History (Updated 01/07/21 @ 07:40 by Idalia Mcallister DO) Alcohol intake: never Patient Tobacco Use Status: Current someday Tobacco user Use of substances other than those prescribed or required for medical reasons: No Advance Directives: No Advance Directives Information Provided: No Meds Allergies Allergy/AdvReac Type Severity Reaction Status Date / Time No Known Allergies Allergy Verified 01/07/21 09:44 Active Medications: Current Medications Acetaminophen (Acetaminophen 325 Mg Tablet) 650 mg PO Q6H PRN PRN Reason: Pain, Mild (Pain Scale 1-3) Albuterol Sulfate (Albuterol Sulfate (0.083%) 2.5 Mg/3 Ml Vial.Neb) 2.5 mg INHALE Q4H PRN PRN Reason: Wheezing Albuterol/Ipratropium (Albuterol/Iprat 2.5/0.5mg 3 Ml Ampul.Neb) 3 ml INHALE RQ4H WHILE AWAKE [facility] Enoxaparin Sodium (Enoxaparin Sodium 40 Mg/0.4 Ml Syringe) 40 mg SUBCUT Q24H [facility] Magnesium Sulfate (Magnesium Sulfate/H2o) 2 gm in 50 mls @ 25 mls/hr IV ONCE ONE Stop: 12/14/21 11:03 Last Admin: 12/14/21 09:26 Dose: 25 mls/hr Documented by: Methylprednisolone Sodium Succinate (Methylprednisolone Sod Succ 40 Mg/Ml Vial) 40 mg IVPUSH Q8H AIYANA Ondansetron HCl (Ondansetron Hcl 4 Mg/2 Ml Vial) 4 mg IVPUSH Q8H PRN PRN Reason: Nausea and Vomiting Oseltamivir Phosphate (Oseltamivir Phosphate 75 Mg Capsule) 75 mg PO Q12H [facility] Stop: 12/18/21 20:01 Pharmacy Consult (Consult Rx Perform Med Rec) 1 each MISCELLANE ONCE PRN PRN Reason: Consult order Sodium Chloride (0.9 % Sodium Chloride Flush 3 Ml Syringe) 3 ml IVFLUSH QSHIFT [facility] Home Medications Medication Instructions Recorded Confirmed Last Taken Type acetaminophen 325 mg tablet 650 mg PO Q6H PRN 12/14/21 12/14/21 Unknown History albuterol sulfate 90 mcg/actuation 2 puff INHALATION Q4H PRN 12/14/21 12/14/21 Unknown History aerosol inhaler Physical Exam Vital Signs and Narrative: Vital Signs: Last Vital Signs Temp 100.9 F H 12/14/21 07:11 Pulse 103 H 12/14/21 09:29 Resp 20 12/14/21 09:29 BP 116/60 12/14/21 09:17 Pulse Ox 92 12/14/21 09:18 Oxygen Flow Rate 2 12/14/21 07:11 BMI result Body Mass Index 24.9 Const: Other: Constitutional - Awake and Alert, in respiratory distress with exertion, comfortable at rest Eyes - PERRLA, EOMI Cardiovascular - S1S2, RRR, No edema Respiratory - diffuse wheezing and rhonchi; accessory muscle use after a few minutes of talking Gastrointestinal - NT / ND; +BS; No rebound or guarding - No CVA tenderness Extremities - no calf tenderness bilaterally, no swelling Musculoskeletal - Normal inspection, normal ROM Skin - Warm/Dry Neurological - Alert & oriented x3, No focal deficit Psychological - Appropriate affect Results Labs CBC and Chem 7: 12/14/21 07:43 12/14/21 07:43 Labs: Laboratory Results - last 24 hr 12/14/21 12/14/21 12/14/21 07:43 07:43 07:43 MCV 84.9 MCH 26.7 L MCHC 31.5 RDW 15.0 Plt Count 299 MPV 11.1 Immature Gran % (Auto) 0.4 Neut % (Auto) 93.0 H Lymph % (Auto) 3.3 L [place] % (Auto) 2.9 Eos % (Auto) 0.2 Baso % (Auto) 0.2 Lymph # (Auto) 0.4 L [place] # (Auto) 0.3 Eos # (Auto) 0.0 Baso # (Auto) 0.0 Abs Immat Gran (auto) 0.05 H Absolute Neuts (auto) 10.4 H Absolute Nucleated RBC 0.000 Nucleated RBC % (auto) 0.0 Smear Tech's Comments VERIFIED Anion Gap 13 Estim Creat Clear Calc 66.4 Estimated GFR > 60 Random Glucose 122 H Calcium 8.9 Total Bilirubin 0.3 Direct Bilirubin < 0.2 AST 30 D ALT 40 H Alkaline Phosphatase 112 Troponin I High Sens < 3.5 B-Natriuretic Peptide 63 Total Protein 7.1 Albumin 3.8 Urine Color Urine Appearance Urine pH Ur Specific [place] Urine Protein Urine Glucose (UA) Urine Ketones Urine Blood Urine Nitrite Ur Leukocyte Esterase COVID-19 (SYED) COVID-19 Clin Com Influenza Type A (DESMOND) Influenza Type B (DESMOND) Influenza A & B Note 12/14/21 12/14/21 12/14/21 07:43 07:43 09:13 MCV MCH MCHC RDW Plt Count MPV Immature Gran % (Auto) Neut % (Auto) Lymph % (Auto) [place] % (Auto) Eos % (Auto) Baso % (Auto) Lymph # (Auto) [place] # (Auto) Eos # (Auto) Baso # (Auto) Abs Immat Gran (auto) Absolute Neuts (auto) Absolute Nucleated RBC Nucleated RBC % (auto) Smear Tech's Comments Anion Gap Estim Creat Clear Calc Estimated GFR Random Glucose Calcium Total Bilirubin Direct Bilirubin AST ALT Alkaline Phosphatase Troponin I High Sens B-Natriuretic Peptide Total Protein Albumin Urine Color YELLOW Urine Appearance CLEAR Urine pH 6.0 Ur Specific [place] 1.020 Urine Protein TRACE Urine Glucose (UA) NEG Urine Ketones NEG Urine Blood NEG Urine Nitrite NEG Ur Leukocyte Esterase NEG COVID-19 (SYED) Negative COVID-19 Clin Com See Note Influenza Type A (DESMOND) Positive A Influenza Type B (DESMOND) Negative Influenza A & B Note See Note Imaging Radiologist's Impressions: Impressions Chest X-Ray 12/14/21 07:51 IMPRESSION: Mild bibasilar linear atelectasis. No acute cardiopulmonary process. Assessment and Plan (1) Asthma with exacerbation: Qualifiers: Asthma persistence: persistent Asthma severity: moderate Qualified Code(s): J45.41 - Moderate persistent asthma with (acute) exacerbation Status: Acute (2) Influenza A: Status: Acute Plan This is a 61 yo F who is unvaccinated against influenza and presents with a 1 day history of respiratory symptoms and fevers. She is diagnosed with acute exacerbation of asthma secondary to influenza. 1. Acute respiratory failure with hypoxia saturations dropped below 90% and she has increased work of breathing with RR in the upper 30s Due to asthma exacerbation continue oxygen by MA with goal of 92%; wean as tolerated 2. Acute asthma exacerbation, secondary to #3 below IV solu-medrol scheduled + prn bronchodilators 3. Influenza A infection onsent of symptoms the day prior to admission - will give Tamiflu x 5 day course 4. Tobacco use patient appears determined on cessation NRT if she requests Full Code DVT pptx, Lovenox In light of her respiratory failure with hypoxia + influenza + asthma exacerbation -- I anticipate a medically necessary inpatient hospitalization, which is likely to span 2 midnights - for treatment and monitoring response. This cannot be completed in a less acute setting. Quality Stroke Does the patient have a stroke diagnosis?: No VTE Prior VTE?: No VTE Risk Level:: Medical - moderate - high VTE Device Contraindication: Treatment Not Indicated VTE Drug Contraindication: N/A - Med Ordered
--- NOTE | 2021-12-14 10:57 | PHA.MEDREC ---
Pharmacy Consult ? Medication Reconciliation Pharmacy has completed the medication reconciliation. Patient reports she ran out of her albuterol inhaler 2 days ago. Erlinda Siu, ShannonD
[2021-12-14] MEDS: Enoxaparin Sodium 40 MG/0.4 ML SYRINGE SUBCUT (11:14)
[2021-12-14] MEDS: methylPREDNISolone Sod Succ 40 MG/ML VIAL IVPUSH ×2 (13:29→20:08)
[2021-12-14] MEDS: ondansetron HCL 4 MG/2 ML VIAL IVPUSH (13:29)
--- NOTE | 2021-12-14 13:34 | PC.NURSE ---
Pt reporting BENAVIDES and generalized pain with nausea. PN tylenol and zofran given whit scheduled steroid injection
--- NOTE | 2021-12-14 14:16 | PC.NURSE ---
Report [facility]. Pt to be transported by PCT.
[2021-12-14] MEDS: 0.9 % Sodium Chloride Flush 3 ML SYRINGE IVFLUSH ×2 (15:58→20:09)
--- NOTE | 2021-12-14 20:18 | PC.NURSE ---
Patient complaining of headache Rn aware. Requested and given hot pack for lower back pain
[2021-12-15] VITALS (8 sets, daily range): BP systolic 97–121; BP diastolic 68–76; PULSE 70–101; RESP 17–20; TEMP 36.7–37.2; O2SAT 88–99
[2021-12-15] MEDS: methylPREDNISolone Sod Succ 40 MG/ML VIAL IVPUSH ×3 (04:04→20:30)
[2021-12-15] MEDS: Oseltamivir Phosphate 75 MG CAPSULE PO ×2 (08:11→20:31)
[2021-12-15] MEDS: Albuterol/Iprat 2.5/0.5MG 3 ML AMPUL.NEB INHALE ×4 (08:42→19:09)
--- NOTE | 2021-12-15 10:38 | HO.PM.IMPN ---
Subjective Subjective Date of Service: 12/15/21 Review of Systems Follow up asthma and flu no sob some wheezing Physical Exam Vital Signs: Vital Signs: Last Vital Signs Temp 98.1 F 12/15/21 08:00 Pulse 91 12/15/21 08:44 Resp 20 12/15/21 08:44 BP 97/76 12/15/21 08:00 Pulse Ox 92 12/15/21 08:00 Oxygen Flow Rate 2 12/14/21 07:11 BMI result Body Mass Index 24.9 Appearing in no acute distress lung sounds mild exp wheezing heart regular rate rhythm, clear S1, S2 positive bowel sounds, abdomen is soft, nontender neuro patient is alert x3, no focal deficits Objective Data Active Medications Acetaminophen (Acetaminophen 325 Mg Tablet) 650 mg PO Q6H PRN PRN Reason: Pain, Mild (Pain Scale 1-3) Last Admin: 12/14/21 20:08 Dose: 650 mg Documented by: KAR Albuterol Sulfate (Albuterol Sulfate (0.083%) 2.5 Mg/3 Ml Vial.Neb) 2.5 mg INHALE Q4H PRN PRN Reason: Wheezing Albuterol/Ipratropium (Albuterol/Iprat 2.5/0.5mg 3 Ml Ampul.Neb) 3 ml INHALE RQ4H WHILE AWAKE [facility] Last Admin: 12/15/21 08:42 Dose: 3 ml Documented by: JAMES Enoxaparin Sodium (Enoxaparin Sodium 40 Mg/0.4 Ml Syringe) 40 mg SUBCUT Q24H [facility] Last Admin: 12/14/21 11:14 Dose: 40 mg Documented by: SANTANA Methylprednisolone Sodium Succinate (Methylprednisolone Sod Succ 40 Mg/Ml Vial) 40 mg IVPUSH Q8H [facility] Last Admin: 12/15/21 04:04 Dose: 40 mg Documented by: VIOLETTE Ondansetron HCl (Ondansetron Hcl 4 Mg/2 Ml Vial) 4 mg IVPUSH Q8H PRN PRN Reason: Nausea and Vomiting Last Admin: 12/14/21 13:29 Dose: 4 mg Documented by: SANTANA Oseltamivir Phosphate (Oseltamivir Phosphate 75 Mg Capsule) 75 mg PO Q12H [facility] Stop: 12/18/21 20:01 Last Admin: 12/15/21 08:11 Dose: 75 mg Documented by: CHLOE Pharmacy Consult (Consult Rx Perform Med Rec) 1 each MISCELLANE ONCE PRN PRN Reason: Consult order Sodium Chloride (0.9 % Sodium Chloride Flush 3 Ml Syringe) 3 ml IVFLUSH QSHIFT [facility] Last Admin: 12/14/21 20:09 Dose: 3 ml Documented by: KAR Labs CBC & Chem 7: 12/14/21 07:43 12/14/21 07:43 Assessment and Plan (1) Asthma with exacerbation: Status: Acute Plan This is a 61 yo F who is unvaccinated against influenza and presents with a 1 day history of respiratory symptoms and fevers. She is diagnosed with acute exacerbation of asthma secondary to influenza. Acute respiratory failure with hypoxia secondary to asthma exacerbation. Improving saturations dropped below 90% and she has increased work of breathing with RR in the upper 30s initially continue oxygen by [place] with goal of 92%; wean as tolerated IV solu-medrol scheduled + prn bronchodilators Influenza A infection onsent of symptoms the day prior to admission Tamiflu x 5 day course Tobacco use patient appears determined on cessation NRT if she requests Full Code DVT pptx, Lovenox Attending Dr. Padilla In light of her respiratory failure with hypoxia + influenza + asthma exacerbation -- I anticipate a medically necessary inpatient hospitalization, which is likely to span 2 midnights - for treatment and monitoring response. This cannot be completed in a less acute setting. Quality Stroke Does the patient have a stroke diagnosis?: No VTE Prior VTE?: No VTE Risk Level:: Medical - moderate - high VTE Device Contraindication: Treatment Not Indicated VTE Drug Contraindication: N/A - Med Ordered
--- NOTE | 2021-12-15 10:45 | PC.NURSE ---
pt received walking about room. Alert and oriented x 4. Requests meds and AM care items (provided). Per RT, pt with SaO2 of 87%, placed to 2L O2 via nc. Plan is to keep patient secondary to desaturation. Now in room, talking on phone, no complaints at this time.
--- NOTE | 2021-12-15 11:18 | MHC.CM.PN ---
CM CONTACTED PTS DAUGHTER, JAYCE [phone] VIA T/C TO COMPLETE PTS SQL DBA DUE TO PTS PRECAUTIONS STATUS. JAYCE REPORTS SHE AND THE PT RESIDE TOGETHER AND SHE ASSISTS PTS WITH CARE PRN, HOWEVER PT IS PRIMARILY INDEPENDENT. SHE REPORTS THE ONLY DME THE PT USES IS A NEBULIZER AND SHE HAS NO HOME SERVICES JAYCE REPORTS THE PT GOES TO THE [facility] ON [facility] IN [place] FOR PRIMARY CARE SHE IS UNSURE IF PT HAS A HCP, CM WILL FOLLOW UP WITH PT TOMORROW SHE REPORTS THE PT HAS NOT RECEIVED THE COVID-19 VACCINES. CURRENT DC PLAN IS HOME WITH NO SERVICES DAUGHTER TO TRANSPORT
[2021-12-15] MEDS: Enoxaparin Sodium 40 MG/0.4 ML SYRINGE SUBCUT (11:46)
[2021-12-15] MEDS: 0.9 % Sodium Chloride Flush 3 ML SYRINGE IVFLUSH ×2 (11:47→15:40)
--- NOTE | 2021-12-15 13:15 | PC.NURSE ---
Medications given late due to medications not being in the pixis. Awaited pharmacy to bring to unit
[2021-12-15] MEDS: Acetaminophen 325 MG TABLET 650 MG PO (20:31)
[2021-12-16] MEDS: 0.9 % Sodium Chloride Flush 3 ML SYRINGE IVFLUSH (00:12)
[2021-12-16 02:02] VITALS: BP 131/75; PULSE 83; RESP 18; TEMP 37.2; O2SAT 92
[2021-12-16] MEDS: methylPREDNISolone Sod Succ 40 MG/ML VIAL IVPUSH (06:16)
--- NOTE | 2021-12-16 07:40 | PM.DS ---
DS: Providers Provider Date of Service: 12/16/21 <Briseida Paredes NP - Last Filed: 12/16/21 07:45> Date of admission: 12/14/21 10:11 <Briseida Paredes NP - Last Filed: 12/16/21 07:45> Primary care physician: Unknown Physician <Briseida Paredes NP - Last Filed: 12/16/21 07:45> Attending physician on discharge: Zahida Connell <Briseida Paredes NP - Last Filed: 12/16/21 07:45> Discharging clinician: Briseida Paredes <Briseida Paredes NP - Last Filed: 12/16/21 07:45> DS: Diagnosis Discharge Diagnosis (1) Asthma with exacerbation: Status: Acute <Briseida Paredes NP - Last Filed: 12/16/21 07:45> DS: Summary Hospital Course Hospital Course: HP as per admitting provider This is a 61 yo F with a PMH of asthma (appears to be mild and intermittent per her history) who presents to the ED with complaints of shorntess of breath, cough, fever, fatigue, muscle aches and pains which began on the evening prior to arrival. The patient reports that multiple family members have tested positive for influenza at home and her symptoms started the evening [employer]. She reports this AM, she was so short of breath that she could barely talk. She reports decreased oral intake. She reports fevers (subjective at home). She states that she cannot remember the last time her asthma flared up. She reports active smoking, with last cigarette 2-3 days prior to admission. She is unvaccinated for influenza and COVID. Upon arrival to the ED, she was found to be febrile. She was tachypneic in the high 30s and hypoxic down to 89%. She was treated with multiple updrafts, IV mag and IV solu-medrol. She has improved, but continues to require oxygen and is tachypneic with minimal exertion (even talking). She will be admitted for further treatment . Acute respiratory failure with hypoxia secondary to asthma exacerbation. Improving saturations dropped below 90% and she has increased work of breathing with RR in the upper 30s initially, but improved now on room air IV solu-medrol changed to oral prednisone for 4 days at home scheduled + prn bronchodilators Influenza A infection onset of symptoms the day prior to admission Tamiflu x 5 day course Tobacco use patient appears determined on cessation NRT <KENNY Lawrence Last Filed: 12/16/21 07:45> Time Spent with Patient Time attestation: Total time spent providing and/or coordinating discharge services: <Briseida Paredes NP - Last Filed: 12/16/21 07:45> Discharge coordination time: Greater than 30 minutes <Briseida Paredes NP - Last Filed: 12/16/21 07:45> Quality: Safe Use of Opioids Does Pt have an Active Cancer Diagnosis on the Problem List?: No <Briseida Paredes NP - Last Filed: 12/16/21 07:45> Quality: Stroke Does the patient have a stroke diagnosis?: No <KENNY Lawrence Last Filed: 12/16/21 07:45> Physical Exam Vital Signs: Vital Signs: Last Vital Signs Temp 98.9 F 12/16/21 02:02 Pulse 83 12/16/21 02:02 Resp 18 12/16/21 02:02 BP 131/75 12/16/21 02:02 Pulse Ox 92 12/16/21 02:02 Oxygen Flow Rate 2 12/14/21 07:11 BMI result Body Mass Index 24.9 <KENNY Lawrence Last Filed: 12/16/21 07:45> Appearing in no acute distress head is normocephalic atraumatic eyes pupils are PERRLA sclera is anicteric mouth throat mucous membranes are intact and moist neck is supple no lymphadenopathy, no JVD noted lung sounds are clear to auscultation heart regular rate rhythm, clear S1, S2 positive bowel sounds, abdomen is soft, nontender neuro patient is alert x3, no focal deficits <Briseida Paredes NP - Last Filed: 12/16/21 07:45> Discharge Plan Discharge Anticipated Discharge Date/Time: 12/16/21 07:52 <Briseida Paredes NP - Last Filed: 12/16/21 07:45> Patient Disposition: Home, Self-Care <Briseida Paredes NP - Last Filed: 12/16/21 07:45> Discharge Diagnosis: Asthma exacerbation Influenza A <KENNY Lawrence Last Filed: 12/16/21 07:45> Discharge Medications: New oseltamivir [Tamiflu] 75 mg Capsule 75 mg PO Q12H Qty: 4 0RF prednisone 10 mg tablet 40 mg PO DAILY Qty: 16 0RF Continued acetaminophen 325 mg Tablet 650 mg PO Q6H PRN (Reason: Pain) 0RF albuterol sulfate 90 mcg/actuation Hfa Aerosol Inhaler 2 puff INHALATION Q4H PRN (Reason: Wheezing) 0RF <Briseida Paredes NP - Last Filed: 12/16/21 07:45> Discharge Orders: Discharge Order (Routine); Ordered 12/16/21 Ordered By: Briseida Paredes <Briseida Paredes NP - Last Filed: 12/16/21 07:45> Diet: advance to usual diet <Briseida Paredes NP - Last Filed: 12/16/21 07:45> Activity on Discharge: As tolerated <Briseida Paredes NP - Last Filed: 12/16/21 07:45> Stand Alone Forms: Patient Portal Discharge page <Briseida Paredes NP - Last Filed: 12/16/21 07:45> Care Plan Goals: resolution of symptoms <Briseida Paredes NP - Last Filed: 12/16/21 07:45> Health Concerns: Asthma exacerbation Influenza A <Briseida Paredes NP - Last Filed: 12/16/21 07:45> Plan of Treatment: Follow-up with your primary care provider as needed Take all medications as prescribed <Briseida Paredes NP - Last Filed: 12/16/21 07:45> Assessment: see discharge summary <Briseida Paredes NP - Last Filed: 12/16/21 07:45> Discharge Date/Time: 12/16/21 11:09 <Briseida Paredes NP - Last Filed: 12/16/21 07:45>
[2021-12-16] MEDS: Oseltamivir Phosphate 75 MG CAPSULE PO (07:58)
--- NOTE | 2021-12-16 08:00 | PC.NURSE ---
pt seen by judi (hosp wellness trainer). pt requesting to leave ama. pt a/o 3 no sob/tonya noted skin pink warm dry speaks in full sentences. amb (i) gait steady.
--- NOTE | 2021-12-16 08:09 | MHC.CM.PN ---
PT DISCHARGED HOME TODAY, SELF CARE. DAUGHTER TO TRANSPORT
== END 2021-12-16 11:09 | disposition home or self-care (01) | DRG 113 ==
LOC: HO.ED 09:04 → HO.EDOVER 10:19
PROVIDERS: Admitting Provider Family Medicine; Emergency Provider Emergency Medicine; Visit Provider Nurse Practitioner Acute Care
DX: J10.1 Influenza due to other identified influenza virus with other respiratory manifestations (principal); J96.01 Acute respiratory failure with hypoxia; J45.41 Moderate persistent asthma with (acute) exacerbation; F17.210 Nicotine dependence, cigarettes, uncomplicated; Z20.822 Contact with and (suspected) exposure to COVID-19; Z71.6 Tobacco abuse counseling; Z79.52 Long term (current) use of systemic steroids; Z79.899 Other long term (current) drug therapy
CPT/HCPCS: 36415; 71045; 80048; 80076; 81003; 83880; 84484; 85025; 87502; 87635; 93005; 94640; 96361; 96365; 96366; 96375; 99285; 99291; J1650; J2405; J2920; J2930; J3475

== ENCOUNTER 2022-03-10 15:36 | Emergency (ER) | payer OTHER, SELFPAY ==
[2022-03-10 18:07] VITALS: BP 138/81; PULSE 85; RESP 16; TEMP 36.6; BMI 29.2
--- NOTE | 2022-03-10 19:36 | ED_ITS ---
HPI - Skin/Abscess/Foreign Bdy General Chief complaint: Skin/Abscess/Foreign Body Stated complaint: rash under armpit and on thigh Time Seen by Provider: 03/10/22 19:27 Source: patient Mode of arrival: ambulatory Limitations: no limitations History of Present Illness HPI narrative: Patient was shaving under her right home 2 days later started to have redness and drainage with tenderness of the right armpit. No fever, no chills. Patient also have another area of redness and infection on the left buttock cheek. Related Data Home Medications Medication Instructions Recorded Confirmed acetaminophen 325 mg tablet 650 mg PO Q6H PRN Pain 12/14/21 12/14/21 albuterol sulfate 90 mcg/actuation 2 puff inhalation Q4H PRN Wheezing 12/14/21 12/14/21 aerosol inhaler Previous Rx's Medication Instructions Recorded oseltamivir 75 mg capsule (Tamiflu) 75 mg PO Q12H #4 caps 12/16/21 prednisone 10 mg tablet 40 mg PO DAILY #16 tabs 12/16/21 doxycycline hyclate 100 mg tablet 100 mg PO BID #20 tabs 03/10/22 Allergies Allergy/AdvReac Type Severity Reaction Status Date / Time No Known Allergies Allergy Verified 01/07/21 09:44 Review of Systems Review of Systems: All other systems are reviewed and are negative Constitutional: Reports as per HPI and Reports no additional constitutional complaints Eyes: Reports as per HPI and Reports no additional eye complaints Reports system reviewed and no additional complaints, except as documented Cardiovascular: Reports as per HPI and Reports no additional cardiovascular complaints Respiratory: Reports as per HPI and Reports no additional respiratory complaints Gastrointestinal: Reports as per HPI and Reports no additional gastrointestinal complaints Genitourinary: Reports no additional female genitourinary complaints Musculoskeletal: Reports no additional musculoskeletal complaints Skin/Breast: Reports system reviewed and no additional complaints, except as docu Psychiatric: Reports no additional psychiatric complaints Endocrine: Reports no additional endocrine complaints Hematologic/Lymphatic: Reports no additional hematologic/lymphatic complaints Allergic/Immunologic: Reports no additional allergic/immunologic complaints Reports system reviewed and no additional complaints, except as documented and Reports Abnormal speech present [facility] Past Medical History Medical History Asthma Surgical History History of appendectomy Social History Social History Alcohol intake: never Patient Tobacco Use Status: Current someday Tobacco user Advance Directives: No Advance Directives Information Provided: No service: No Current occupational status: unemployed Physical Exam Vital Signs: Vital Signs: Last Vital Signs Temp 98 F 03/10/22 18:07 Pulse 85 03/10/22 18:07 Resp 16 03/10/22 18:07 BP 138/81 03/10/22 18:07 O2 Del Method 03/10/22 18:07 BMI result Body Mass Index 29.2 Vital signs have been reviewed as appeared to be correct. Blood pressure normal. Heart rate normal. Respiration rate normal. Temperature normal. Oxygen saturation normal. Appearance: Alert. Oriented X3. No acute distress. Head: Normal external exam. Normocephalic. Atraumatic. No Cedillo signs noted. No raccoon eyes noted Eyes: PERRLA. EOMI. Conjunctiva and sclera normal. Eyelids normal. ENT: TM's Normal. Pharynx normal. Uvula midline. Moist mucous membranes. No trismus noted. No drooling noted. No muffled voice noted. Neck: Normal inspection. Neck supple. FROM. No adenopathy. Thyroid Normal. No meningeal signs. No neck mass noted. CVS: Normal heart rate and rhythm. Heart sound normal. No murmurs noted. Pulses normal throughout. Respiratory: No respiratory distress. Painless inspiration. Breath sounds normal. No wheezes/rales/rhonchi noted. Chest nontender. No accessory muscle usage noted or decreased air movement noted. Abdomen: Soft and nontender. Bowel sounds normal in all 4 quadrants. No distention noted. No organomegaly noted. No visible injury noted. Back: No CVA tenderness. Full range of motion noted. Skin: Skin warm and dry. Normal skin color. Normal skin turgor. No rashes/lesions/lacerations noted. Extremities: Right axillary small area of redness, hotness, mild fluctuation, no drainage. Small area of redness and hotness over the left buttock area with no fluctuation. Neuro: Oriented X 3. Cranial nerve exam: II-XII are grossly intact No motor deficit. No sensory deficit. Reflexes normal. Course Course Course Narrative: 62-year-old female has right armpit follicle lightest that needed I and D in the ED, will start the patient on doxycycline. Procedures Abscess I/D Site: other (Right axilla) Side (if applicable): right Local Anesthetic: lidocaine 1% Amount of anesthesia used (mL): 4 Technique: incised with blade Amount of fluid expressed (mL): 2 Sent for culture/gram staining?: No Irrigation: No Packing used?: none Complications: pain Discharge Plan Discharge Clinical Impression: Folliculitis of axilla Patient Disposition: Home, Self-Care Instructions: Folliculitis (ED) Additional Instructions: Take ibuprofen 200 mg tablet every 6 hours if needed for pain you can alternate with 500 mg [id number] Tylenol every 6 hours if needed for pain. Prescriptions: New doxycycline hyclate 100 mg tablet 100 mg PO BID Qty: 20 0RF No Action acetaminophen 325 mg Tablet 650 mg PO Q6H PRN (Reason: Pain) albuterol sulfate 90 mcg/actuation Hfa Aerosol Inhaler 2 puff INHALATION Q4H PRN (Reason: Wheezing) oseltamivir [Tamiflu] 75 mg Capsule 75 mg PO Q12H Qty: 4 0RF prednisone 10 mg tablet 40 mg PO DAILY Qty: 16 0RF Referrals: Physician,Unknown J [Primary Care Provider] -
[2022-03-10] MEDS: Lidocaine HCl 1 % MPF 5 ML VIAL 6 ML SUBCUT (20:05)
[2022-03-10] MEDS: oxyCODONE HCl Immed Release 5 MG TABLET PO (20:21)
[2022-03-10 20:22] VITALS: BP 134/71; PULSE 87; RESP 20; TEMP 37.1; O2SAT 98
== END 2022-03-10 20:31 | disposition home or self-care (01) ==
PROVIDERS: Emergency Provider Emergency Medicine
DX: N83.01 Follicular cyst of right ovary (principal); R21 Rash and other nonspecific skin eruption; F17.200 Nicotine dependence, unspecified, uncomplicated; Z71.6 Tobacco abuse counseling; Z79.899 Other long term (current) drug therapy
CPT/HCPCS: 10060; 99283

== ENCOUNTER 2023-08-27 15:52 | Outpatient (REF) | payer MEDICAID, SELFPAY ==
--- NOTE | 2023-08-27 16:50 | MHC.AU.HA1 ---
Hearing Aid Evaluation Date of Visit: 08/27/23 Historical Information: Description of Hearing: Flat mild sensorineural hearing loss, bilateral. Current personal amplification information, if applicable: None Summary: Seen for evaluation. Noted frustration hearing loss is causing in communication with family. Discussed benefits and limitations of amplification. Reviewed amplification styles and options. Patient would like rechargeable hearing aids. Has an iPhone that she would like to be able to pair HAs with. Hearing Aid Prescription: Based on the individual?s shared listening needs, communication environments, dexterity, desire for connectivity, and personal preferences, the following prescription for amplification has been made: Right ear: Make, Model, Color: [employer]ingo[employer] Real 2 miniRITE R, terracotta Battery Size: Rechargeable Patient Account Representative/Slim Tube: 2/ Type of Earmold/Dome/CShell/SlimTip: 6mm double valenzuela Left ear: Left ear prescription to be same as Right Hearing Aid above: Accessories/Assistive Technology Recommended: knowledge management consultant Plan of Care: Patient wishes to purchase hearing aids as prescribed Action Taken/Action Needed: Medical Clearance to be requested from PCP/ENT Hearing Instrument Fitting to be scheduled when materials arrive Comments: Wax removal As recommended before fitting, patient reports upcoming visit with PCP this month, will have wax removal done then. Fitting to be scheduled after that date. Primary Diagnosis: H90.3 Bilateral Sensorineural Hearing Loss Signature: Provider: Khanh Bautista, [facility]
== END 2023-08-27 15:53 | disposition home or self-care (01) ==
LOC: HO.SH 15:52
PROVIDERS: Visit Provider Physician Assistant
DX: Z01.118 Encounter for examination of ears and hearing with other abnormal findings (principal); Z46.1 Encounter for fitting and adjustment of hearing aid; H90.3 Sensorineural hearing loss, bilateral
CPT/HCPCS: 92557; 92567; 92591

== ENCOUNTER 2023-10-23 12:57 | Outpatient (REF) | payer MEDICAID, SELFPAY ==
--- NOTE | 2023-10-23 14:29 | MHC.AU.HA2 ---
Hearing Instrument Fitting- Adult- Binaural Date of Visit: 10/23/23 Hearing Instruments Dispensed: Right Ear: Make, Model, Color, Serial Number: O[employer]on Real 2 miniRITE-R SN: [id number] Color: Terracotta Inspector And Clerk Repair Warranty: 10/28/2026 Inspector And Clerk Loss and Damage Warranty: 10/28/2026 [facility] [place] Service Plan: 10/22/2024 Battery Size: Rechargeable Account Support Specialist/Slim Tube: 2/85 Earmold/Dome/CShell/SlimTip: 6mm double valenzuela (no retention tail) Type of Wax Guard: miniFit Left Ear: Make, Model, Color, Serial Number: Oticon Real 2 miniRITE-R SN: [id number] Color: Terracotta Inspector And Clerk Repair Warranty: 10/28/2026 Inspector And Clerk Loss and Damage Warranty: 10/28/2026 [facility] [place] Service Plan: 10/22/2024 Battery Size: Rechargeable Account Support Specialist/Slim Tube: 2/85 Earmold/Dome/CShell/SlimTip: 6mm double valenzuela (no retention tail) Type of Wax Guard: miniFit Accessories/Assistive Technology: [facility] SN: [id number] Summary of Fitting: Performed feedback analyzer and real ear measures with good match to target. Then decreased <1 kHz due to sound of own voice. Discussed care, use, and rechargeability including manually turning on/off, volume control use, and changing domes and wax guards. Explained importance of consistent use in acclimating to the hearing aids. Practiced insertion/removal. Some difficulty fully inserting dome but better with practice. Paired to cellphone. Savi was under the impression that she only had to use the hearing aids for one year and then her hearing would improve. Discussed that SNHL is permanent and she will need hearing aids for more than one year. Recommendations: A hearing instrument follow-up was scheduled. Diagnosis Code(s): Primary Diagnosis: H90.3 Bilateral Sensorineural Hearing Loss Signature: Provider: Khanh Gresham, [facility]
== END 2023-10-23 12:58 | disposition home or self-care (01) ==
LOC: HO.HAP 12:57
PROVIDERS: Visit Provider Physician Assistant
DX: Z46.1 Encounter for fitting and adjustment of hearing aid (principal); H90.3 Sensorineural hearing loss, bilateral
CPT/HCPCS: V5011; V5020; V5160; V5261